=== PATIENT | male | born 1945 | race Caucasian/White ===

== ENCOUNTER 2017-06-29 17:57 | Inpatient (IN) | payer MEDICARE ==
[2017-06-29 18:52] LABS: HEMOGLOBIN 14.4 gm/dl (14.0-17.5); RED BLOOD COUNT 4.58 M/UL (4.20-5.50); WHITE BLOOD COUNT 8.8 K/UL (4.5-11.0)
[2017-06-29 19:21] LABS: BUN/CREATININE RATIO 18 (0-10)
== END 2017-06-30 00:30 | disposition left against medical advice (07) | DRG 190 ==
LOC: ER1 17:57 → ZEROF 21:50 → M/S 23:14
PROVIDERS: Specialist/Technologist Athletic Trainer; ADMIT Internal Medicine
DX: J44.0 Chronic obstructive pulmonary disease with (acute) lower respiratory infection (principal); J18.9 Pneumonia, unspecified organism; J90 Pleural effusion, not elsewhere classified; I25.10 Atherosclerotic heart disease of native coronary artery without angina pectoris; Z99.81 Dependence on supplemental oxygen; I10 Essential (primary) hypertension; Z83.3 Family history of diabetes mellitus; Z80.9 Family history of malignant neoplasm, unspecified; Z87.891 Personal history of nicotine dependence; R41.0 Disorientation, unspecified
CPT/HCPCS: 36415; 51701; 70450; 71010; 80053; 81001; 82550; 82553; 83874; 83880; 84484; 85025; 87040; 87086; 93005; 96374; 99285; J0456; J0696; J7030; J7050